=== PATIENT | male | born 1940 | race Caucasian/White ===

== ENCOUNTER 2018-01-20 10:18 | Day surgery (SDC) | payer OTHER ==
[2018-01-20] MEDS: hydrALAzine 20 MG INJ IV ×2 (11:26→14:08)
[2018-01-20] MEDS ORDERED: FENTAnyl 50 MCG/ML VIAL (11:53)
[2018-01-20] MEDS ORDERED: DEXAMETHASONE 4 MG/ML 1 ML INJ ×2 (11:55→13:08)
[2018-01-20] MEDS ORDERED: BUPIVACAINE 0.5% (SDV) 30 ML INJ (11:55)
[2018-01-20] MEDS ORDERED: CEFAZOLIN 1 GM INJ (11:56)
[2018-01-20] MEDS ORDERED: PROPOFOL 20 ML (11:56)
[2018-01-20] MEDS ORDERED: ROCURONIUM 50 MG INJ (11:56)
[2018-01-20] MEDS ORDERED: EPHEDrine SULFATE 50 MG/5 ML SYG IV (12:00)
[2018-01-20] MEDS ORDERED: DIPHENHYDRAMINE 50 MG INJ IV (12:00)
[2018-01-20] MEDS ORDERED: FENTAnyl 50 MCG/ML VIAL IV ×2 (12:00)
[2018-01-20] MEDS ORDERED: HYDROmorphONE (0.2 MG/ML) 10ML SYG IV ×3 (12:00)
[2018-01-20] MEDS ORDERED: MEPERIDINE 25 MG INJ IV (12:00)
[2018-01-20] MEDS ORDERED: METOCLOPRAMIDE 10 MG INJ IV (12:00)
[2018-01-20] MEDS ORDERED: LABETALOL HCL 20MG INJ IV (12:00)
[2018-01-20] MEDS ORDERED: ROPIVACAINE 0.5 % 30 ML VIAL (12:47)
[2018-01-20] MEDS ORDERED: hydrALAzine 20 MG INJ (13:04)
[2018-01-20] MEDS ORDERED: ONDANSETRON 4 MG INJ (13:08)
[2018-01-20] MEDS ORDERED: ACETAMINOPHEN 1000MG/100ML IV 100 ML (13:19)
[2018-01-20] MEDS: BACITRACIN/POLYMYXIN 28.35 GM OINT TOP (13:38)
[2018-01-20] MEDS: FENTAnyl 50 MCG/ML VIAL IV (13:47)
[2018-01-20] MEDS: ONDANSETRON 4 MG INJ IV (13:47)
[2018-01-20] MEDS: OXYCODONE/ACETAMINOPHEN (5/325) TAB PO (14:07)
[2018-01-20] MEDS ORDERED: HYDROCODONE/APAP (5/325) TAB PO (14:30)
== END 2018-01-20 15:05 | disposition home or self-care (01) ==
LOC: SDS 10:18
DX: M20.42 Other hammer toe(s) (acquired), left foot (principal); I10 Essential (primary) hypertension
CPT/HCPCS: 28285